=== PATIENT | male | born 1985 | race Two or more races ===

== ENCOUNTER 2017-10-21 09:00 | Emergency (ER) | payer MEDICAID ==
[~2017-10-21] VITALS: Ht 162.6 cm; Wt 85.0 kg
[2017-10-21] MEDS ORDERED: ACETAMINOPHEN 500 MG TABLET ONE (09:52)
[2017-10-21] MEDS ORDERED: KETOROLAC 30 MG/1 ML ONE (09:52)
[2017-10-21] MEDS ORDERED: SODIUM CHLORIDE 0.9% 1,000ML IVBOLUS ONE (10:00)
[2017-10-21] MEDS ORDERED: SODIUM CHLORIDE FLUSH 10ML SYR IVF ONE (10:00)
[2017-10-21] MEDS ORDERED: KETOROLAC 30 MG/1 ML IVPush ONE (10:00)
[2017-10-21] MEDS ORDERED: ACETAMINOPHEN 500 MG TABLET PO ONE (10:00)
[2017-10-21] MEDS ORDERED: DEXAMETHASONE 4 MG/ML, 1ML ONE (10:02)
[2017-10-21 10:14] LABS: RAPID INFLUENZA A Negative (Negative); RAPID INFLUENZA B Negative (Negative)
[2017-10-21] MEDS ORDERED: DEXAMETHASONE 4 MG/ML, 1ML IVPush ONE (10:30)
[2017-10-21 11:44] VITALS: BP 104/56
== END 2017-10-21 11:47 | disposition home or self-care (01) ==
LOC: ED 11:41
DX: J02.0 Streptococcal pharyngitis (principal)
CPT/HCPCS: 71010; 87400; 87880; 96361; 96374; 96375; 99285; J1100; J1885; J7030

== ENCOUNTER 2017-10-23 05:38 | Emergency (ER) | payer MEDICAID ==
[~2017-10-23] VITALS: Ht 162.6 cm; Wt 73.5 kg
[2017-10-23 05:55] VITALS: BP 130/78
[2017-10-23] MEDS ORDERED: BICILLIN-LA 1,200,000 UNITS/2 ML IM ONE (06:30)
[2017-10-23] MEDS ORDERED: DEXAMETHASONE 4 MG/ML, 1ML PO ONE (06:30)
[2017-10-23] MEDS ORDERED: maalox/diphenh/lido/sucralfate 5 ML PO ONE (06:30)
[2017-10-23] MEDS ORDERED: DEXAMETHASONE 4 MG/ML, 5ML ONE (06:56)
[2017-10-23] MEDS ORDERED: DEXAMETHASONE 4 MG TABLET ONE (07:13)
== END 2017-10-23 07:25 | disposition home or self-care (01) ==
LOC: ED 06:33
DX: J03.00 Acute streptococcal tonsillitis, unspecified (principal)
CPT/HCPCS: 96372; 99283; J0561; J1100